=== PATIENT | male | born 1980 | race Caucasian/White ===

== ENCOUNTER 2020-10-01 12:08 | Outpatient (REF) | payer BC, SELFPAY | END 2020-10-01 12:09 | disposition home or self-care (01) | LOC: HO.LAB 12:08 | PROVIDERS: Visit Provider Internal Medicine | DX: Z20.822 Contact with and (suspected) exposure to COVID-19 (principal) | CPT/HCPCS: 36415; C9803; U0003 ==

== ENCOUNTER → 2022-12-19 14:21 | Outpatient (BNVA) | payer OTHER, SELFPAY | PROVIDERS: PCP Internal Medicine; Visit Provider Physician Assistant ==

== ENCOUNTER → 2022-12-26 14:03 | Outpatient (BNVA) | payer OTHER, SELFPAY | PROVIDERS: PCP Internal Medicine; Visit Provider Physician Assistant | DX: M51.36 Other intervertebral disc degeneration, lumbar region (principal) | CPT/HCPCS: 99212 ==

== ENCOUNTER 2023-01-11 07:53 | Day surgery (SDC) | payer OTHER, SELFPAY ==
--- NOTE | 2023-01-08 | ECG_ITS ---
Test Reason : PRE OP Blood Pressure : / mmHG Vent. Rate : 095 BPM Atrial Rate : 095 BPM P-R Int : 158 ms QRS Dur : 090 ms QT Int : 330 ms P-R-T Axes : 048 057 033 degrees QTc Int : 414 ms Normal sinus rhythm Normal ECG No previous ECGs available Referred By: Francie Oreilly Electronically Signed By:[place]
[2023-01-08 13:17] VITALS: BP 120/65; PULSE 92; RESP 16; O2SAT 96; BMI 44.2
--- NOTE | 2023-01-08 13:29 | P.CONAN_ITS ---
Documented by User: Francie Oreilly NP 01/10/23 10:11 HPI - Anesthesia Eval Consult details Narrative: 42yo M for Right L 4-5 Laminectomy Lumbar Decompression w/ L5 foraminotomy Suboxone (on hold since preop 11/29/22) bridge with dilaudid Elevated A1C @ 8.7%. Dr Dykes aware. [facility] Active Problems Active Problems: All Active Problems (Updated 01/08/23 @ 13:17 by Iman Mendenhall RN) Lumbar degenerative disc disease (Acute) Past Medical History Medical History (Updated 01/08/23 @ 13:17 by Iman Mendenhall RN) Anxiety and depression Asthma Degenerative disc disease, lumbar Diabetes Elevated cholesterol Heart murmur HTN (hypertension) Lumbar radiculopathy Obesity Sleep apnea Substance abuse Tobacco abuse Family History Family history of problems with anesthesia: No Surgical History Surgical History (Updated 01/08/23 @ 13:11 by Iman Mendenhall RN) History of back surgery History of excision of pilonidal cyst History of surgery History of Problems with Anesthesia: No Social History Social History Household Members Other:: parents & niece Are you a primary rn home care to a significant other at home: No Do you presently have visiting nurse or other home services: Yes ([facility], Occ. Therapist) Patient Tobacco Use Status: Current someday Tobacco user Tobacco use type: Cigarette Cigarettes Per Day: 4 Years Smoked: 30 Smoked in Last 30 Days: Yes Patient Interested in Nicotine Replacement: No Substance Use Type Other:: clean X 2 1/2 years (was taking suboxone & on hold for surgery per patient Have you been hit, kicked, punched, or otherwise hurt by someone within the past year? If so, by whom?: No Are you DNR?: No Advance Directives: No (states mother is HCP) Advance Directives Information Provided: Yes (states to bring copy DOS, but brochure given also) Advance Directives on File: No Recently lost weight without trying: No Eating poorly because of decreased appetite: No Nutrition Risks: No Nutritional Risk Poor oral hygiene: No (upper & lower partials-rarely wears) Narrative Narrative: No recent illness No CP/SOB with minimal activity Meds Allergies Allergy/AdvReac Type Severity Reaction Status Date / Time pollen extracts Allergy Intermediate SOB/wheezin Verified 01/05/23 11:40 g Home Medications Medication Instructions Recorded Confirmed Last Taken Type albuterol sulfate 90 mcg/actuation 2 puff inhalation QID PRN wheezing 01/05/23 01/05/23 Unknown History aerosol inhaler (ProAir HFA) atorvastatin 10 mg tablet 10 mg PO QPM 01/05/23 01/08/23 Unknown History budesonide 90 mcg/actuation breath 1 inh inhalation BID 01/05/23 01/05/23 Unknown History activated powder inhaler (Pulmicort Flexhaler) buspirone 15 mg tablet 15 mg PO TID 01/05/23 01/05/23 Unknown History clonidine HCl 0.1 mg tablet 0.1 mg PO BEDTIME 01/05/23 01/08/23 Unknown History famotidine 20 mg tablet 20 mg PO BID 01/05/23 01/08/23 Unknown History gabapentin 300 mg capsule 900 mg PO BEDTIME 01/05/23 01/08/23 Unknown History gabapentin 600 mg tablet 600 mg PO BID 01/05/23 01/08/23 01/11/23 History glipizide 5 mg tablet, extended 5 mg PO QPM 01/05/23 01/08/23 Unknown History release 24 hr lisinopril 5 mg tablet 10 mg PO QPM 01/05/23 01/08/23 Unknown History metformin 500 mg tablet 500 mg PO QPM 01/05/23 01/08/23 Unknown History mirtazapine 15 mg tablet 15 mg PO BEDTIME 01/05/23 01/08/23 Unknown History mupirocin 2 % topical ointment 1 appl topical TID 01/05/23 01/05/23 Unknown History naproxen 500 mg tablet 500 mg PO BID PRN Insomnia 01/05/23 01/08/23 01/07/23 History oxcarbazepine 150 mg tablet 150 mg PO BID 01/05/23 01/05/23 Unknown History prazosin 2 mg capsule 2 mg PO BEDTIME 01/05/23 01/08/23 Unknown History trazodone 100 mg tablet 200 mg PO BEDTIME 01/05/23 01/08/23 Unknown History oxcarbazepine 600 mg tablet 600 mg PO BID 01/08/23 01/08/23 Unknown History Exam Exam Date and Time: January 08, 2023 1329 Height,Weight and Vital Signs: Height 5 ft 7 in Weight 128.231 kg Last Vital Signs Pulse 92 01/08/23 13:17 Resp 16 01/08/23 13:17 BP 120/65 01/08/23 13:17 Pulse Ox 96 01/08/23 13:17 O2 Del Method Room Air 01/08/23 13:17 Pertinent Lab Results Pertinent Lab Results: Lab Results 01/08/23 01/08/23 01/08/23 Range/Units 14:07 14:07 14:07 WBC 6.3 (4.8-10.8) X10*3/uL RBC 4.74 (4.60-5.80) X10*6/uL Hgb 13.4 L (14.0-18.0) g/dl Hct 42.6 (42.0-52.0) % MCV 89.9 (80.0-98.0) fL MCH 28.3 (27.0-33.0) pg MCHC 31.5 (31.0-36.0) g/dl RDW 13.0 (11.0-16.0) % Plt Count 215 (160-400) X10*3/uL MPV 10.3 (9.4-12.4) fL Absolute Nucleated RBC 0.000 (0.0-0.012) X10*3/uL Nucleated RBC % (auto) 0.0 (0.0-0.2) /100WBC Sodium 140 (135-145) mmol/L Potassium 4.8 (3.3-5.1) mmol/L Chloride 104 (96-108) mmol/L Carbon Dioxide 27 (22-29) mmol/L Anion Gap 14 (12-20) BUN 15 (9-16) mg/dL Creatinine 0.83 (0.5-1.4) mg/dL Estim Creat Clear Calc 146.1 Estimated GFR > 60 Random Glucose 91 (60-115) mg/dL Estimat Average Glucose 203 mg/dL Hemoglobin A1c % 8.7 % Calcium 9.4 (8.4-10.2) mg/dL Narrative Narrative: EKG 12/2022 Vent. Rate : 095 BPM ? ? Atrial Rate : 095 BPM ?? P-R Int : 158 ms? QRS Dur : 090 ms ? ? QT Int : 330 ms ? ? ? P-R-T Axes : 048 057 033 degrees ?? QTc Int : 414 ms ? Normal sinus rhythm Normal ECG No previous ECGs available Airway Mallampati Class: III TM Dist: >3cm Neck ROM: Full Partial: Upper and Lower Heart: RRR Lungs: CTAB Assessment and Plan Assessment Anesthesia Assessment: Anesthesia Plan Discussed and PAT Visit Final Anesthetic Review Family History of Problems with Anesthesia: No History of Problems with Anesthesia: No Documented by User: Mazin Tapia MD 01/11/23 08:26 [facility] Past Medical History Medical History (Updated 01/08/23 @ 13:17 by Iman Mendenhall RN) Anxiety and depression Asthma Degenerative disc disease, lumbar Diabetes Elevated cholesterol Heart murmur HTN (hypertension) Lumbar radiculopathy Obesity Sleep apnea Substance abuse Tobacco abuse Surgical History Surgical History (Updated 01/08/23 @ 13:11 by Iman Mendenhall RN) History of back surgery History of excision of pilonidal cyst History of surgery Social History Social History Household Members Other:: parents & niece Are you a primary rn home care to a significant other at home: No Do you presently have visiting nurse or other home services: Yes ([facility], Occ. Therapist) Patient Tobacco Use Status: Current someday Tobacco user Tobacco use type: Cigarette Cigarettes Per Day: 4 Years Smoked: 30 Smoked in Last 30 Days: Yes Patient Interested in Nicotine Replacement: No Substance Use Type Other:: clean X 2 1/2 years (was taking suboxone & on hold for surgery per patient Have you been hit, kicked, punched, or otherwise hurt by someone within the past year? If so, by whom?: No Are you DNR?: No Advance Directives: No (states mother is HCP) Advance Directives Information Provided: Yes (states to bring copy DOS, but brochure given also) Advance Directives on File: No Recently lost weight without trying: No Eating poorly because of decreased appetite: No Nutrition Risks: No Nutritional Risk Poor oral hygiene: No (upper & lower partials-rarely wears) Meds Allergies Allergy/AdvReac Type Severity Reaction Status Date / Time pollen extracts Allergy Intermediate SOB/wheezin Verified 01/05/23 11:40 g Home Medications Medication Instructions Recorded Confirmed Last Taken Type albuterol sulfate 90 mcg/actuation 2 puff inhalation QID PRN wheezing 01/05/23 01/05/23 Unknown History aerosol inhaler (ProAir HFA) atorvastatin 10 mg tablet 10 mg PO QPM 01/05/23 01/08/23 Unknown History budesonide 90 mcg/actuation breath 1 inh inhalation BID 01/05/23 01/05/23 Unknown History activated powder inhaler (Pulmicort Flexhaler) buspirone 15 mg tablet 15 mg PO TID 01/05/23 01/05/23 Unknown History clonidine HCl 0.1 mg tablet 0.1 mg PO BEDTIME 01/05/23 01/08/23 Unknown History famotidine 20 mg tablet 20 mg PO BID 01/05/23 01/08/23 Unknown History gabapentin 300 mg capsule 900 mg PO BEDTIME 01/05/23 01/08/23 Unknown History gabapentin 600 mg tablet 600 mg PO BID 01/05/23 01/08/23 01/11/23 History glipizide 5 mg tablet, extended 5 mg PO QPM 01/05/23 01/08/23 Unknown History release 24 hr lisinopril 5 mg tablet 10 mg PO QPM 01/05/23 01/08/23 Unknown History metformin 500 mg tablet 500 mg PO QPM 01/05/23 01/08/23 Unknown History mirtazapine 15 mg tablet 15 mg PO BEDTIME 01/05/23 01/08/23 Unknown History mupirocin 2 % topical ointment 1 appl topical TID 01/05/23 01/05/23 Unknown History naproxen 500 mg tablet 500 mg PO BID PRN Insomnia 01/05/23 01/08/23 01/07/23 History oxcarbazepine 150 mg tablet 150 mg PO BID 01/05/23 01/05/23 Unknown History prazosin 2 mg capsule 2 mg PO BEDTIME 01/05/23 01/08/23 Unknown History trazodone 100 mg tablet 200 mg PO BEDTIME 01/05/23 01/08/23 Unknown History oxcarbazepine 600 mg tablet 600 mg PO BID 01/08/23 01/08/23 Unknown History Assessment and Plan Assessment Anesthesia Assessment: Smoking Cess. Discussed Final Anesthetic Review NPO: Yes Final Preanesthetic Review: No Changes in Pt Med Stat, Meds/Allgs Chart Reviewed, Consent Obtained/Reviewed and Anes Risks/Benef Reviewed Patient Risk: Intermediate Procedure Risk: Intermediate Anesthetic Plan Anesthetic Plan: GA Disposition: Standard PACU
[2023-01-08 15:08] LABS: Hematocrit 42.6 % (42.0-52.0); Hemoglobin 13.4 g/dl (14.0-18.0); Mean Corpuscular HGB Conc 31.5 g/dl (31.0-36.0); Mean Corpuscular Hemoglobin 28.3 pg (27.0-33.0); Mean Corpuscular Volume 89.9 fL (80.0-98.0); Mean Platelet Volume 10.3 fL (9.4-12.4); Platelet Count 215 X10*3/uL (160-400); Red Blood Count 4.74 X10*6/uL (4.60-5.80); White Blood Count 6.3 X10*3/uL (4.8-10.8)
[2023-01-08 15:20] LABS: Estimated Average Glucose 203 mg/dL; Hemoglobin A1c % 8.7 %
[2023-01-08 16:01] LABS: Anion Gap 14 (12-20); Blood Urea Nitrogen 15 mg/dL (9-16); Calcium 9.4 mg/dL (8.4-10.2); Carbon Dioxide 27 mmol/L (22-29); Chloride 104 mmol/L (96-108); Creatinine Clr Calc Pharmacy 146.1; Estimated Glomerular Filt Rate > 60; Glucose Random 91 mg/dL (60-115); Potassium 4.8 mmol/L (3.3-5.1); Sodium 140 mmol/L (135-145)
[2023-01-11] VITALS (8 sets, daily range): BP systolic 93–120; BP diastolic 54–74; PULSE 96–110; RESP 12–20; TEMP 36.1–37.1; O2SAT 94–98
--- NOTE | ~2023-01-11 | FL_ITS ---
EXAMINATION: XR FLUOROSCOPY WITH IMAGES CLINICAL INFORMATION: l4-5 micro lumbar discectomy COMPARISON: Outside MR lumbar spine 06/06/2022 (RAY[facility]). TECHNIQUE: Fluoroscopy Supervised By: Dr. Yong Dykes. Fluoroscopy Time: Under 10 seconds. Cumulative Dose: 4.75 mGy. DAP: 0.848 Gycm2. Images: 1. FINDINGS: There is a metallic pointer directed towards the lumbosacral junction. There has been prior posterior fusion with rodding and pedicle screws L4-S1 and disc spaces L4-L5 and L5-S1. FL/FL guidance in OR IMPRESSION: Fluoroscopy for neurosurgical procedure.
[2023-01-11 08:07] LABS: Glucose, Whole Blood 105 mg/dL (60-115)
[2023-01-11] MEDS: Lactated Ringers 1,000 ML 100 ML IVCONT (08:29)
[2023-01-11] MEDS: methocarbamoL 750 MG TABLET PO (08:30)
--- NOTE | 2023-01-11 11:21 | W.PM.OPN ---
Operative Note Operative Note Date of Service: 01/11/23 Narrative: Preoperative diagnosis: Right lumbar radiculopathy; status post L4-S1 lumbar fusion; residual right L5 foraminal stenosis on CT postoperative diagnosis: Same Procedure: Right L5 laminotomy, L4-5 facetectomy and L5 foraminotomy to decompress the L5 nerve root with microscope Description of procedure: This 42-year-old male previously underwent a minimally invasive L4-S1 lumbar fusion. Postoperatively he was complaining of her right radiculopathy in an L5 distribution. The CT of the lumbar spine showed a good position of the interbody devices and spit tissue. Dressing to be residual L5 foraminal stenosis. He was offered a decompression of the L5 nerve root. The procedure complications were explained. He was consented. He was brought to the operating room endotracheally intubated. He was turned in a prone position On the Lele frame. Preventative was done followed by top. A mid lumbar incision was made followed by release of the paravertebral muscles on the right side to expose the L5 lamina and facet joint. Intraoperative x-ray was obtained to confirm the correct level. High-speed drill was used to perform a partial facetectomy and L5 laminotomy until flavum ligament became visible. The microscope was brought in. The laminotomy was extended with a 2. And 3 [place]. The medial wall of the S1 and [id number] were identified identified. the facetectomy was completed. A significant amount of epidural and intraforaminal fat was countered which was also partially removed. I exposed the L5-S1 disc space and performed an annulotomy. An intraforaminal diskectomy was done. accordingly, I could easily pass an instrument on the L5 nerve root as signed for adequate decompression. The physician orthodontic technician assistant performed hemostasis and closed the incision in 2 layers. Steri-Strips are used to approximate the incision. An op-site with tegaderm was used to cover the incision. All sponge and needle counts were correct. Patient was extubated and transported in a stable condition to recovery room. Anesthesia: General Blood loss: 20 mL Specimen: None Complications: None Disposition: Discharge home
--- NOTE | 2023-01-11 11:33 | PM.DS ---
DS: Providers Provider Date of Service: 01/11/23 Date of discharge: 01/11/23 Primary care physician: Unknown Physician DS: Diagnosis Discharge Diagnosis (1) Back pain of lumbar region with sciatica: Status: Acute DS: Summary Time Spent with Patient Time attestation: Total time managing care of this patient today ____ minutes. Discharge coordination time: Less than 30 minutes Quality: Safe Use of Opioids Does Pt have an Active Cancer Diagnosis on the Problem List?: No Quality: Stroke Does the patient have a stroke diagnosis?: No Physical Exam Vital Signs: Vital Signs: Last Vital Signs Temp 98 F 01/11/23 08:11 Pulse 99 01/11/23 08:11 Resp 20 01/11/23 08:11 BP 110/74 01/11/23 08:11 Pulse Ox 96 01/11/23 08:11 O2 Del Method Room Air 01/11/23 08:11 BMI result Body Mass Index 44.2 DS: Data Data Completed and Pending Labs on day of discharge: Laboratory Results - last 24 hr 01/11/23 08:04 POC Glucose 105 Discharge Plan Discharge Patient Disposition: Home, Self-Care Referrals: Physician,Unknown J [Primary Care Provider] - 1 Week Discharge Medications: New hydromorphone [Dilaudid] 4 mg tablet 4 mg PO Q4H PRN (Reason: pain) Qty: 30 0RF Rx Instructions: Partial Fill upon patient request. Continued hydromorphone [Dilaudid] 4 mg tablet 4 mg PO Q4H PRN (Reason: pain) Qty: 30 0RF Rx Instructions: Partial Fill upon patient request. metformin 500 mg tablet 500 mg PO QPM oxcarbazepine 150 mg tablet 150 mg PO BID clonidine HCl 0.1 mg tablet 0.1 mg PO BEDTIME gabapentin 600 mg tablet 600 mg PO BID atorvastatin 10 mg tablet 10 mg PO QPM glipizide 5 mg tablet extended release 24hr 5 mg PO QPM famotidine 20 mg Tablet 20 mg PO BID trazodone 100 mg tablet 200 mg PO BEDTIME gabapentin 300 mg capsule 900 mg PO BEDTIME lisinopril 5 mg tablet 10 mg PO QPM mupirocin 2 % ointment 1 appl topical TID mirtazapine 15 mg tablet 15 mg PO BEDTIME albuterol sulfate [ProAir HFA] 90 mcg/actuation HFA aerosol inhaler 2 puff inhalation QID PRN (Reason: wheezing) prazosin 2 mg capsule 2 mg PO BEDTIME naproxen 500 mg tablet 500 mg PO BID PRN (Reason: Insomnia) buspirone 15 mg tablet 15 mg PO TID Pulmicort Flexhaler 90 mcg/actuation aerosol powdr breath activated 1 inh inhalation BID oxcarbazepine 600 mg tablet 600 mg PO BID tizanidine 4 mg tablet 4 mg PO Q8H PRN (Reason: muscle spasticity) Qty: 30 0RF Kaltostat Wound Dressing 3 X 4 3/4 bandage See Rx Instructions topical .COMPLEX Qty: 10 2RF Rx Instructions: topically change every 3 days; wound dehiscence after abdominal surgery Discharge Orders: Discharge Order (Routine); Ordered 01/11/23 Ordered By: Sharan Ross Diet: Diabetic diet Activity on Discharge: As tolerated Activity Restrictions/Additional Instructions: After your spinal surgery we ask you to observe the following restrictions/guidelines: Activity: It is normal to feel some discomfort as you increase your activity, but that will improve with time. We ask you avoid heavy lifting or acitivities that cause pain. As a general rule, 8lbs is a safe limit for lifting right after surgery. Walk as much as you feel comfortable but not to exhaustion. You will feel extra tired the first few days after surgery. Stay well hydrated. It is OK to walk up and down stairs You may return to driving when you are off narcotics (such as vicodin, oxycodone, dilaudid, etc), and you are back to normal functional capacity. If you have any concerns please check with office before driving. Return to work is specific to each patient and each surgery, so please speak with your doctor/PA at first follow up. Please bring paperwork such as FMLA at that time if you need it filled out. Medications: We will give you a short supply of narcotics after surgery (usually one weeks worth). If you need more please call the office but do not use more than prescribed. You will need to give our office 48 hours notice if you need narcotics refilled and we do not fill narcotics on weekends or evenings. If you are on a narcotic, it is a good idea to take a stool softener such as colace or senna to avoid constipation If you take blood thinner such as aspirin, Plavix, Coumadin, Effient, Eliquis etc for conditions such as Afib, DVT, Pulmonary embolus, coronary disease, stents etc please speak with your surgeon about specific details as to when you can resume these medications. You can resume NSAIDs on post op day 1 (eg: Motrin, Naproxen, etc). Follow up: Please call the office, , after surgery to arrange a 3 week follow up for wound check. Wound Care: You may remove your dressing on the first day after surgery. You may leave open to air. Please do not remove the steri strips underneath. they will fall off on their own in one week. IT IS NORMAL FOR THE WOUND TO OOZE OR BE BLOODY FOR A FEW DAYS AFTER SURGERY. IF THIS HAPPENS JUST PLACE NEW DRESSING OVER IT TO AVOID STAINING CLOTHES. You may shower on post op day # 1 We ask that you do not let the water soak the wound. If it does get wet, just towel dry lightly. Please do not scrub your incision or place any type of chemical/ointment on the wound. No tub baths, pools or jacuzzis for one month. If you have any leaking or redness from your wound, or fevers, please call office
== END 2023-01-11 13:53 | disposition home or self-care (01) ==
PROVIDERS: Nurse Practitioner; Visit Provider Neurological Surgery
PROC: (CPT 63047; principal; 2023-01-11 09:20)
DX: M51.36 Other intervertebral disc degeneration, lumbar region (principal); M48.062 Spinal stenosis, lumbar region with neurogenic claudication; M54.40 Lumbago with sciatica, unspecified side; M54.16 Radiculopathy, lumbar region; M79.604 Pain in right leg; G47.33 Obstructive sleep apnea (adult) (pediatric); I10 Essential (primary) hypertension; J45.909 Unspecified asthma, uncomplicated; E11.9 Type 2 diabetes mellitus without complications; E78.00 Pure hypercholesterolemia, unspecified; Z98.1 Arthrodesis status; Z79.51 Long term (current) use of inhaled steroids; Z79.84 Long term (current) use of oral hypoglycemic drugs; Z79.899 Other long term (current) drug therapy; F17.210 Nicotine dependence, cigarettes, uncomplicated; F41.8 Other specified anxiety disorders; F14.11 Cocaine abuse, in remission; F11.11 Opioid abuse, in remission
CPT/HCPCS: 63047; 36415; 80048; 82947; 83036; 85027; 93005; J0131; J0690; J1100; J1170; J1885; J2370; J2405; J3010

== ENCOUNTER → 2023-02-02 15:14 | Outpatient (BNVA) | payer OTHER, SELFPAY | PROVIDERS: PCP Internal Medicine; Visit Provider Physician Assistant | DX: M54.41 Lumbago with sciatica, right side (principal) | CPT/HCPCS: 99212 ==

== ENCOUNTER 2023-04-10 09:00 | Outpatient (RCR) | payer OTHER, SELFPAY ==
[2023-02-23 06:53] VITALS: BP 122/82; PULSE 98; O2SAT 96
--- NOTE | 2023-05-04 09:46 | MHC.PT.DC ---
[facility] [place] Office [place] [facility] [place] Office [address] Mayco Shah [address] [phone] F: [phone] F: [phone] F: [phone] F: [phone] Physical Therapy Discharge Report Diagnosis: M54.50 Lumbago with sciatica, unspecified side Status post lumbar fusion, status post lumbar decompression for right leg pain radiculopathy signed by Sharan Ross PA-C date of referral 02/05/23 Date of Surgery: 01/11/23 Date of Evaluation: 02/23/23 Date of Discharge: 05/04/23 Treatments to Date: 10 Cancellations to Date: No Shows to Date: Discharge Status: Discharge Summary: Pt attended 10 session of PT,gaining some knowledge of core stabilization/aquatic program activities. He was last seen in the office on 04/10/23 and was noted to for his last scheduled appt. At time of his last appt Fidel was scheduled for an injection in his R hip and was booked for an MRI of his lumbar 05/09/23. He continues to express L and R varying parathesias. D/C patient due to plateaued progress. Thank you for your referral. 04/10/23: Pt expressing near constant R LE sx, scheduled for R hip injection on Sunday04/16/23. 04/06/23: Pt challenged/fatigued with seated rows/extension with bands. Pt expressing he is scheduled for injection on 04/16/23, MRI in April. 04/03/23: Pt expressing he will be receiving an injection in the R hip at the end of the month. Pt issued written HEP program for pool to trial. Pt expressing near constant electricity in the R LE this date 03/27/23: Positive response to prone activity trialed in the office today (issued prone lying and prone on elbows for home program). Pt continues to use rollator for ambulation. Pt weak in core and R>L LE. USING ROLLATOR TODAY, GOOD TRACY TO PRONE WITH RELIEF IN LE SXS REPORTED, POOR CORE STRENGTH, POOR LE STRENGTH/FLEXIBILITY Electronically signed by: Lizzie Fink, PT, DPT Please sign and return to therapist. Thank you for your referral.
== END 2023-05-04 08:00 | disposition home or self-care (01) ==
LOC: HO.PTWFD 09:00
PROVIDERS: PCP Internal Medicine; Visit Provider Physician Assistant
DX: M54.50 Low back pain, unspecified (principal)
CPT/HCPCS: 97110; 97116; 97150; 97162; 97530; 97535